=== PATIENT | male | born 1990 | race Caucasian/White ===

== ENCOUNTER → 2017-05-03 | Outpatient (CLI) | payer OTHER ==
[~2017-05-03] MED LIST: ALBU18002 INH; ASCA500 PO; EPP3/2 IM; MULT-506 PO; PRLSR20 PO; VITAMIN B12 SL
--- NOTE | 2017-05-03 08:43 | DIAGNOSTIC IMAGING REPORT ---
MRI OF THE LEFT ANKLE WITHOUT IV CONTRAST CLINICAL HISTORY: Left ankle sprain. COMPARISON STUDY: No priors. TECHNIQUE: MRI of the left ankle is performed utilizing various T1 and T2-weighted sequences in the axial, sagittal, and coronal planes. IV contrast was not administered for this examination. Note that interpretation is significantly suboptimal without plain film correlate. FINDINGS: A cutaneous marker has been placed over the lateral malleolus. There is rupture of the anterior talofibular ligament. The anterior and posterior tibiofibular ligaments appear intact. No fracture is identified. There is no ankle joint effusion. No osteochondral defect is seen in the talar dome. There is maintenance of normal fat within the sinus tarsi. The Achilles tendon is normal in morphology and signal intensity. The anterior, posterior, and peroneal tendons are intact. The deltoid and spring ligaments are intact as visualized. Imaged plantar fascia is within normal limits. IMPRESSION: 1. Findings are consistent with rupture of the anterior talofibular ligament. 2. No fracture is seen. 3. The ankle tendons appear intact. Dictated: 05/03/2017 7:58 AM Transcribed: 05/03/2017 8:42 AM Corinne Electronically signed by: Salomón Robbins M.D. 05/03/2017 8:52 AM Dictated Date/Time: 05/03/2017 7:58 AM
== END | disposition home or self-care (01) ==
LOC: C.MRI 07:09
PROVIDERS: ATTEND Physician Assistant
DX: S93.402A Sprain of unspecified ligament of left ankle, initial encounter (principal); X58.XXXA Exposure to other specified factors, initial encounter

== ENCOUNTER → 2017-08-17 | Day surgery (SDC) | payer OTHER ==
[2017-08-07 14:58] VITALS: Ht 181.6 cm; Wt 97.7 kg
[~2017-08-17] VITALS: Ht 181.6 cm; Wt 97.7 kg
[~2017-08-17] MED LIST changes: -ASCA500 PO; +FENTANYL CITRATE INJ 50 MCG/1 ML 2 ML VIAL ONE; +LIDOCAINE HCL 2% 2 ML VIAL (20MG/ML) ONE; +MIDAZOLAM HCL 1 MG/ML 2ML VIAL ONE; +PROPOFOL IV EMULSION 10 MG/ML 20 ML VIAL IV ONE; +SODIUM CHLORIDE 0.9% 500ML 500 ML IV ONE
--- NOTE | 2017-08-17 12:52 | Endo History and Physical ---
History & Physical Date of Service: Aug 17, 2017. Chief Complaint: EGD-BLOATING/COLON-LOOSE STOOLS Referring Physician: [facility] History of Present Illness 27 yo CM who presents for EGD and colonoscopy secondary to abdominal bloating and loose stools. Past Surgical History Hx Cardiac Surgery: No Hx Internal Defibrillator: No Hx Pacemaker: No Hx Abdominal Surgery: No Hx of Implantable Prosthesis: No Hx Cancer Surgery: No Hx Thoracic Surgery: No Hx Orthopedic: No Hx Urinary Tract Surgery: No Family History IBD Social History Smoking Status: Never Smoker Hx Substance Use: No Hx Alcohol Use: Yes (OCCASIONALLY) Allergies Coded Allergies: Amoxicillin (Verified Allergy, Unknown, HEART RACES, 08/07/17) BEE STING (Verified Allergy, Unknown, ANAPHYLAXIS, 08/07/17) Latex (Verified Allergy, Unknown, RASH, 08/07/17) Red Dye (Verified Allergy, Unknown, RED DYE #40>HEART RACES, 08/07/17) Current Medications Reported Home Medications Medications Dose Route/Sig Max Daily Dose Days Date Category Epipen (Epinephrine) 0.3 Mg/0.3 Ml Inj 0.3 Mg IM UD 08/07/17 Reported Proair Respiclick (Albuterol Sulfate) 108 Mcg/Act Aer 2 Puff INH QID PRN 08/07/17 Reported Prilosec (Omeprazole) 20 Mg Capcr 20 Mg PO BID 08/07/17 Reported [Vitamin B12] 1 Dose SL QAM 08/07/17 Reported Multivitamin (Multivitamins) Tab 1 Tab PO QAM 08/07/17 Reported Vital Signs Weight (Kilograms): 97.73 Height (Feet): 5 Height (Inches): 11.5 Date Time Temp Pulse Resp B/P (MAP) Pulse Ox O2 Delivery O2 Flow Rate FiO2 08/17/17 12:17 36.5 78 16 131/82 (98) 98 Room Air Physical Exam General Appearance: WD/WN, no apparent distress Respiratory/Chest: Auscultation: breath sounds normal Cardiovascular: Heart Auscultation: RRR Abdomen: Bowel Sounds: normal Inspection & Palpation: soft, non-distended, no tenderness, guarding & rebound Assessment and Plan Assessment: 27 yo CM who presents for EGD and colonoscopy secondary to abdominal bloating and loose stools. Plan: Proceed with EGD and colonoscopy.
--- NOTE | 2017-08-17 13:31 | GI REPORT ---
Procedure Date: 08/17/2017 12:45 PM Procedure: Upper GI endoscopy Indications: Abdominal bloating Medicines: Monitored Anesthesia Care Complications: No immediate complications. Estimated Blood Loss: Estimated blood loss: none. Procedure: Pre-Anesthesia Assessment: - Prior to the procedure, a History and Physical was performed, and patient medications and allergies were reviewed. The patient's tolerance of previous anesthesia was also reviewed. The risks and benefits of the procedure and the sedation options and risks were discussed with the patient. All questions were answered, and informed consent was obtained. Prior Anticoagulants: The patient has taken no previous anticoagulant or antiplatelet agents. ASA Grade Assessment: II - A patient with mild systemic disease. After reviewing the risks and benefits, the patient was deemed in satisfactory condition to undergo the procedure. After obtaining informed consent, the endoscope was passed under direct vision. Throughout the procedure, the patient's blood pressure, pulse, and oxygen saturations were monitored continuously. The scope was introduced through the mouth, and advanced to the second part of duodenum. The upper GI endoscopy was accomplished without difficulty. The patient tolerated the procedure well. Findings: The esophagus was normal. A single 4 mm mucosal papule (nodule) with no stigmata of recent bleeding was found at the gastroesophageal junction. Biopsies were taken with a cold forceps for histology. Biopsies were taken with a cold forceps in the gastric antrum for Helicobacter pylori testing. The examined duodenum was normal. Biopsies for histology were taken with a cold forceps for evaluation of celiac disease. Impression: - Normal esophagus. - A single mucosal papule (nodule) found in the stomach. Biopsied. - Normal examined duodenum. Biopsied. - Biopsies were taken with a cold forceps for Helicobacter pylori testing. Recommendation: - Resume previous diet. - Continue present medications. - Await pathology results. - Return to primary care physician as previously scheduled. Junaid Mendenhall DO 08/17/2017 1:30:17 PM This report has been signed electronically. Note Initiated On: 08/17/2017 12:45 PM I attest to the content of the Intraoperative Record and orders documented therein, exceptions below
--- NOTE | 2017-08-17 13:33 | GI REPORT ---
Procedure Date: 08/17/2017 1:14 PM Procedure: Colonoscopy Indications: Chronic diarrhea Medicines: Monitored Anesthesia Care Complications: No immediate complications. Estimated Blood Loss: Estimated blood loss: none. Procedure: Pre-Anesthesia Assessment: - Prior to the procedure, a History and Physical was performed, and patient medications and allergies were reviewed. The patient's tolerance of previous anesthesia was also reviewed. The risks and benefits of the procedure and the sedation options and risks were discussed with the patient. All questions were answered, and informed consent was obtained. Prior Anticoagulants: The patient has taken no previous anticoagulant or antiplatelet agents. ASA Grade Assessment: II - A patient with mild systemic disease. After reviewing the risks and benefits, the patient was deemed in satisfactory condition to undergo the procedure. After I obtained informed consent, the scope was passed under direct vision. Throughout the procedure, the patient's blood pressure, pulse, and oxygen saturations were monitored continuously. The Scope was introduced through the anus and advanced to the terminal ileum. The colonoscopy was performed without difficulty. The patient tolerated the procedure well. The quality of the bowel preparation was good. The terminal ileum, ileocecal valve, appendiceal orifice, and rectum were photographed. Findings: The colon (entire examined portion) appeared normal. Several random biopsies were obtained with cold forceps for histology in the entire colon. Fluid aspiration for cytology was performed. Impression: - The entire examined colon is normal. Fluid aspiration performed. - Several random biopsies were obtained in the entire colon. Recommendation: - Resume previous diet. - Continue present medications. - Repeat colonoscopy for surveillance based on pathology results. - Return to primary care physician as previously scheduled. Junaid Mendenhall, DO 08/17/2017 1:32:22 PM This report has been signed electronically. Note Initiated On: 08/17/2017 1:14 PM I attest to the content of the Intraoperative Record and orders documented therein, exceptions below
--- NOTE | 2017-08-17 13:34 | Discharge Instructions ---
Endoscopy Patient Instructions Date / Procedure(s) Performed Aug 17, 2017. Colonoscopy, EGD Allergy Information Coded Allergies: Amoxicillin (Verified Allergy, Unknown, HEART RACES, 08/07/17) BEE STING (Verified Allergy, Unknown, ANAPHYLAXIS, 08/07/17) Latex (Verified Allergy, Unknown, RASH, 08/07/17) Red Dye (Verified Allergy, Unknown, RED DYE #40>HEART RACES, 08/07/17) Discharge Date / Findings Aug 17, 2017. EGD: Gastric nodule s/p biopsies, Gastric antrum biopsies, Duodenal biopsies Colonoscopy: Random colon biopsies, Stool aspirate collected Medication Instructions OK to resume all medications today as prescribed Reported Home Medications Medications Dose Route/Sig Max Daily Dose Days Date Category Epipen (Epinephrine) 0.3 Mg/0.3 Ml Inj 0.3 Mg IM UD 08/07/17 Reported Proair Respiclick (Albuterol Sulfate) 108 Mcg/Act Aer 2 Puff INH QID PRN 08/07/17 Reported Prilosec (Omeprazole) 20 Mg Capcr 20 Mg PO BID 08/07/17 Reported [Vitamin B12] 1 Dose SL QAM 08/07/17 Reported Multivitamin (Multivitamins) Tab 1 Tab PO QAM 08/07/17 Reported Provider Instructions Activity Restrictions - No exercising or heavy lifting for 24 hours. - Do not drink alcohol the day of the procedure. - Do not drive a car or operate machinery until the day after the procedure. - Do not make any important decisions or sign important papers in 24 hours after the procedure. Following Day: - Return to full activity which may include returning to work/school. Diet Start your diet with liquids and light foods (jello, soup, juice, toast). Then eat your usual diet if not nauseated. Treatment For Common After Affects For mild abdominal pain, bloating, or excessive gas: - Rest - Eat lightly - Lie on right side Follow-Up Information Follow-up with S as scheduled Anesthesia Information What You Should Know You have had a procedure that required some medicine to reduce anxiety and discomfort. This treatment is called moderate sedation. After receiving the treatment, you may be sleepy, but you will be able to breathe on your own. The effects of the treatment may last for several hours. Follow these instructions along with Activity/Diet recommendations noted above: * Do NOT do anything where dizziness or clumsiness would be dangerous. * Rest quietly at home today, then you can be up and about tomorrow. * Have a responsible person stay with you the rest of today. * You may have had an I.V. today. If so, you may take the dressing off later today. Recommendations Call your doctor if: * Trouble breathing * Continuous vomiting for more than 24 hours * Temperature above 101 degrees * Severe abdominal pain or bloating * Pain not relieved by pain medicine ordered * There is increased drainage or redness from any incision * A large amount of rectal bleeding greater than 2-3 tablespoons. (If you had a polyp/s removed or have hemorrhoids, a small amount of blood - from the rectum is to be expected.) * You have any unanswered questions or concerns. IN THE EVENT OF A SERIOUS EMERGENCY, GO TO THE NEAREST EMERGENCY ROOM Your discharge instructions were prepared by provider Junaid Mendenhall. Patient Instructions Signature Page [facility] Patient (or Guardian) Signature/Date: I have read and understand the instructions given to me by my caregivers. Caregiver/RN/Doctor Signature/Date: The above-named patient and/or guardian has received patient instructions on this date. + Original Patient Signature Page (only) stays with chart. Please make copy for patient.
--- NOTE | 2017-08-17 13:50 | Anesthesiology Progress Note ---
Anesthesia Post Op Note Date & Time Aug 17, 2017 at 13:50 Vital Signs Pain Intensity: 0 Vital Signs Past 12 Hours Date Time Temp Pulse Resp B/P (MAP) Pulse Ox O2 Delivery O2 Flow Rate FiO2 08/17/17 13:44 61 16 113/75 (88) 95 Room Air 08/17/17 13:29 65 16 120/60 (80) 98 Room Air 08/17/17 12:17 36.5 78 16 131/82 (98) 98 Room Air Notes Mental Status: alert / awake / arousable, participated in evaluation Pt Amnestic to Procedure: Yes Nausea / Vomiting: adequately controlled Pain: adequately controlled Airway Patency, RR, SpO2: stable & adequate BP & HR: stable & adequate Hydration State: stable & adequate Anesthetic Complications: no major complications apparent
[2017-08-17 14:01] VITALS: BP 115/66; PULSE 60; O2SAT 96
== END | disposition home or self-care (01) ==
LOC: C.GI 11:51
PROVIDERS: ATTEND Internal Medicine
DX: R14.0 Abdominal distension (gaseous) (principal); K31.89 Other diseases of stomach and duodenum; K29.50 Unspecified chronic gastritis without bleeding; K21.9 Gastro-esophageal reflux disease without esophagitis; J45.909 Unspecified asthma, uncomplicated